=== PATIENT | female | born 1965 | race Caucasian/White ===

== ENCOUNTER 2023-06-13 06:53 | Outpatient (CLI) | payer BC, SELFPAY | END 2023-06-13 06:54 | disposition home or self-care (01) | PROVIDERS: PCP Family Medicine; Visit Provider Family Medicine | DX: Z00.00 Encounter for general adult medical examination without abnormal findings (principal); Z13.6 Encounter for screening for cardiovascular disorders; Z13.1 Encounter for screening for diabetes mellitus; Z11.59 Encounter for screening for other viral diseases | CPT/HCPCS: 80053; 80061; 86803 ==

== ENCOUNTER 2023-08-16 07:30 | Outpatient (RCR) | payer BC, SELFPAY | END 2023-12-14 23:59 | disposition home or self-care (01) | PROVIDERS: PCP Family Medicine; Visit Provider Family Medicine | DX: S49.91XA Unspecified injury of right shoulder and upper arm, initial encounter (principal); S49.92XA Unspecified injury of left shoulder and upper arm, initial encounter; Z51.89 Encounter for other specified aftercare | CPT/HCPCS: 97110; 97140; 97161 ==

== ENCOUNTER 2024-02-13 09:03 | Outpatient (CLI) | payer BC, SELFPAY ==
--- NOTE | 2024-02-13 09:15 | CRLHL7_ITS ---
For Patients: As a result of the Century Cures Act, medical imaging exams and procedure reports are released immediately into your electronic medical record. You may view this report before your referring provider. If you have questions, please contact your health care provider. BILATERAL DIGITAL SCREENING MAMMOGRAM WITH COMPUTER-AIDED DETECTION AND TOMOSYNTHESIS CLINICAL HISTORY: Routine screening exam. COMPARISON: None. TECHNIQUE: Digital mammogram in CC and MLO projections including computer-aided detection (CAD). Tomosynthesis was used in this interpretation. BREAST COMPOSITION: The breasts are heterogeneously dense, which may obscure small masses. FINDINGS: RIGHT Breast: No suspicious findings. LEFT Breast: Focal asymmetric density upper outer quadrant 3 cm from the nipple. IMPRESSION: LEFT breast asymmetry/mass. RECOMMENDATIONS: Additional mammographic views of the LEFT breast including 3D spot compression CC/MLO. LEFT breast ultrasound may also be required. The [facility] will contact the patient. A lay language report of this examination will be provided to the patient. BI-RADS Category 0: Incomplete: Need Additional Imaging Evaluation Dictated by Imer Vaughn MD @ 02/13/2024 10:44:58 AM /Dictated by: Imer Vaughn MD @ 02/13/2024 10:45:00 AM (Electronically Signed)
== END 2024-02-13 09:04 | disposition home or self-care (01) ==
LOC: MAMMO 09:05
PROVIDERS: PCP Family Medicine; Visit Provider Family Medicine
DX: Z12.31 Encounter for screening mammogram for malignant neoplasm of breast (principal); N63.20 Unspecified lump in the left breast, unspecified quadrant; R92.333 Mammographic heterogeneous density, bilateral breasts
CPT/HCPCS: 77063; 77067

== ENCOUNTER 2024-03-06 08:29 | Outpatient (CLI) | payer BC, SELFPAY ==
--- NOTE | 2024-03-06 08:45 | CRLHL7_ITS ---
For Patients: As a result of the Cures Act, medical imaging exams and procedure reports are released immediately into your electronic medical record. You may view this report before your referring provider. If you have questions, please contact your health care provider. DIGITAL DIAGNOSTIC LEFT MAMMOGRAM USING TOMOSYNTHESIS AND COMPUTER-AIDED DETECTION LEFT BREAST ULTRASOUND CLINICAL HISTORY: LEFT breast mass/asymmetry. COMPARISON: 02/13/2024. TECHNIQUE: Digital LEFT mammogram in two projections. Tomosynthesis was used in this interpretation. Computer-aided detection utilized. Real-time ultrasound imaging of LEFT breast with imaging documentation. Scanning was performed by both the technologist and the radiologist. BREAST COMPOSITION: The breasts are heterogeneously dense, which may obscure small masses. FINDINGS: 3D spot compression CC/MLO LEFT breast mammogram images submitted. Persistent asymmetric density within the upper outer quadrant with associated coarse calcifications. Targeted LEFT breast ultrasound performed. At 2 o`clock 3 cm from the nipple, there is an ill-defined area of mixed echotexture including areas of decreased echogenicity along with fibrocystic changes measuring approximately 2.5 cm. IMPRESSION: Indeterminate dense heterogeneous tissue LEFT breast 2 o`clock 3 cm from the nipple. RECOMMENDATIONS: Ultrasound-guided core needle biopsy. A lay language report of this examination will be provided to the patient. BI-RADS Category 4: Suspicious Dictated by Imer Vaughn MD @ 03/06/2024 9:36:03 AM jj/Dictated by: Imer Vaughn MD @ 03/06/2024 9:36:00 AM (Electronically Signed)
--- NOTE | 2024-03-06 09:15 | CRLHL7_ITS ---
For Patients: As a result of the Cures Act, medical imaging exams and procedure reports are released immediately into your electronic medical record. You may view this report before your referring provider. If you have questions, please contact your health care provider. SEE DIGITAL DIAGNOSTIC LEFT MAMMOGRAM PERFORMED SAME DAY CRL:[email or web address] henderson/Dictated by: Imer Vaughn MD @ 03/06/2024 9:36:00 AM (Electronically Signed)
== END 2024-03-06 08:30 | disposition home or self-care (01) ==
LOC: MAMMO 08:31
PROVIDERS: PCP Family Medicine; Visit Provider Family Medicine
DX: N63.20 Unspecified lump in the left breast, unspecified quadrant (principal); R92.30 Dense breasts, unspecified
CPT/HCPCS: 76642; 77065; G0279

== ENCOUNTER 2024-03-15 09:01 | Outpatient (CLI) | payer BC, SELFPAY ==
--- NOTE | 2024-03-15 09:15 | CRLHL7_ITS ---
For Patients: As a result of the Century Cures Act, medical imaging exams and procedure reports are released immediately into your electronic medical record. You may view this report before your referring provider. If you have questions, please contact your health care provider. ULTRASOUND-GUIDED LEFT BREAST BIOPSY AND POST-BIOPSY DIGITAL MAMMOGRAM FOR BIOPSY MARKER PLACEMENT CLINICAL HISTORY: Indeterminate dense tissue. COMPARISON STUDIES: 03/06/2024, 02/13/2024. TECHNIQUE: Real-time ultrasound with image documentation was used for targeting the breast lesion. Core biopsy specimens were obtained using an automated gun with a 14-gauge biopsy needle. Post-biopsy CC and ML digital mammograms were obtained to document position of the biopsy marker. CONSENT and TIME OUT: The procedure, risks, and alternatives were explained to the patient and a consent was signed. [place] Protocol was followed including pre-procedure verification that relevant information/documentation was available, reviewed and properly matched to the patient; consent accurate and complete; and equipment and supplies available. Time Out was conducted just prior to starting procedure to verify the four required elements: patient identity, correct side/site marked (if applicable), procedure, relevant images/results properly labeled and displayed (if applicable). PROCEDURE: The patient was positioned supine on the ultrasound table. The breast was prepped with ChloraPrep. 6 cc of 1 percent lidocaine used for local anesthesia. Core samples were obtained. A sterile metal biopsy clip was placed percutaneously to xiomara the lesion position within the breast. The specimens were placed in 10% formalin and sent to the pathology department. Pressure was held on the biopsy site until all bleeding subsided. The skin incision was closed with Steri-Strips. An ice pack was positioned over the biopsy site. Post-biopsy instructions were reviewed with the patient, and a written copy was given to her. LATERALITY: LEFT breast. LESION: Heterogeneous mildly shadowing tissue within the upper outer quadrant measuring 3.3 x 1.1 x 3.8 cm at 2 o`clock 2 cm from the nipple. SUSPICION FOR MALIGNANCY: Indeterminate. NUMBER OF SAMPLES: 6 BIOPSY CLIP SHAPE: HydroMARK. PROXIMITY OF CLIP TO TARGET: Within the lesion. IMPRESSION: Ultrasound-guided breast biopsy. When the pathology report is available, an addendum to this report will be made. ACR not applicable Dictated by Imer Vaughn MD @ 03/15/2024 1:11:13 PM /sp SP/Dictated by: Imer Vaughn MD @ 03/15/2024 1:11:00 PM (Electronically Signed)
--- NOTE | 2024-03-15 10:00 | CRLHL7_ITS ---
For Patients: As a result of the Century Cures Act, medical imaging exams and procedure reports are released immediately into your electronic medical record. You may view this report before your referring provider. If you have questions, please contact your health care provider. PLEASE SEE LEFT ULTRASOUND-GUIDED BIOPSY OF SAME DAY. CRL:sp SP/Dictated by: Imer Vaughn MD @ 03/15/2024 1:09:00 PM (Electronically Signed)
== END 2024-03-15 09:02 | disposition home or self-care (01) ==
LOC: US 09:01
PROVIDERS: PCP Family Medicine; Visit Provider Family Medicine
DX: N63.20 Unspecified lump in the left breast, unspecified quadrant (principal); R92.333 Mammographic heterogeneous density, bilateral breasts; R92.8 Other abnormal and inconclusive findings on diagnostic imaging of breast
CPT/HCPCS: 19083; 77065; 88305; A4648; A4649

== ENCOUNTER 2025-02-07 13:25 | Outpatient (CLI) | payer BC, SELFPAY | END 2025-02-07 13:26 | disposition home or self-care (01) | LOC: NFLDREF 02-13 15:18 | PROVIDERS: PCP Family Medicine; Referring Provider Family Medicine; Visit Provider Family Medicine | DX: Z00.00 Encounter for general adult medical examination without abnormal findings (principal) | CPT/HCPCS: 80053; 80061 ==